=== PATIENT | male | born 2000 | race Caucasian/White ===

== ENCOUNTER 2018-10-15 00:45 | Emergency (ER) | payer OTHER ==
[2018-10-15] MEDS ORDERED: TDAP ADULT 0.5 ML INJ (BOOSTRIX) IM ONE (00:56)
[2018-10-15] MEDS ORDERED: AMOXICILLIN/CLAVULANATE POT 875/125 MG TAB PO ONE (03:01)
--- NOTE | 2018-10-15 03:06 | EDPHY ---
H & P Stated Complaint: stepped on glass with right foot Time Seen by Provider: 10/15/18 01:18 HPI/ROS: HPI: The patient presents with right foot laceration after stepping on a broken class wall drinking alcohol. A glass broke on the floor and he stepped on it while wearing shoes. The piece of glass punctured his shoe and went into his foot. He was able to remove it but believes about 1.5 in went into his foot. He is complaining of pain to his foot without any numbness or tingling. REVIEW OF SYSTEMS 10 systems were reviewed and negative with the exception of the elements mentioned in the history of present illness. PMHx: Healthy TRAUMA PHYSICAL General Appearance: Alert, no distress Head: Atraumatic Respiratory: Breathing comfortably Extremities: Right foot plantar surface with macerated 3 cm laceration in the mid foot which appears deep Neurological: A&Ox3, GCS=15,normal motor function with 5/5 strength in all 4 extremities, normal sensory exam Source: Patient Exam Limitations: No limitations - Personal History Current Tetanus/Diphtheria Vaccine: No Current Tetanus Diphtheria and Acellular Pertussis (TDAP): No - Medical/Surgical History Hx Asthma: No Hx Chronic Respiratory Disease: No Hx Diabetes: No Hx Cardiac Disease: No Hx Renal Disease: No Hx Cirrhosis: No Hx Alcoholism: No Hx HIV/AIDS: No Hx Splenectomy or Spleen Trauma: No Other PMH: denies - Social History Smoking Status: Current every day smoker Constitutional: Initial Vital Signs Temperature (C) 36.2 C 10/15/18 00:52 Heart Rate 117 H 10/15/18 00:52 Respiratory Rate 16 10/15/18 00:52 Blood Pressure 154/82 H 10/15/18 00:52 O2 Sat (%) 94 10/15/18 00:52 O2 Delivery Mode Room Air Allergies/Adverse Reactions: No Known Allergies Allergy (Unverified 10/15/18 00:53) Home Medications: Medication Instructions Recorded Ciprofloxacin [Cipro] 500 mg PO BID #14 tab 10/15/18 Medical Decision Making - Diagnostics Imaging Results: X-ray right foot three views shows no fracture, no foreign body, interpreted by me, radiology interpretation is pending. Imaging: I viewed and interpreted images myself Procedures: LACERATION REPAIR Procedure: Laceration repair. Verbal consent was obtained from the patient. The macerated 3 cm laceration on the right plantar surface of the foot was anesthetized using lidocaine with epi. The wound was scrubbed, draped and explored to its base with a gloved finger. There were no deep structures involved. No tendon injury was identified. The wound required extensive debridement . The wound was repaired with simple interrupted sutures 4-0 nylon. The wound repair was simple. The procedure was performed by myself. 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 He is neurovascularly intact. X-ray was obtained demonstrating no foreign body. Foot was given anesthetic and copiously irrigated. I closed the wound. I will start him on antibiotics to cover for Pseudomonas given puncture wound through shoe. I have discussed strict return precautions in case of infection. Differential diagnosis includes foot laceration, foot foreign body, less likely tendon injury. - Data Points Medications Given: Discontinued Medications Amoxicillin/Clavulanate Potassium (Augmentin 875mg) 875 mg PO EDNOW ONE PRN Reason: Protocol Stop: 10/15/18 03:02 Last Admin: 10/15/18 03:07 Dose: 875 mg Ciprofloxacin (Cipro) 500 mg PO EDNOW ONE PRN Reason: Protocol Stop: 10/15/18 03:08 Last Admin: 10/15/18 03:15 Dose: 500 mg Ciprofloxacin (Cipro 500mg Prepack#2) 1 btl TAKEHOME EDNOW ONE Stop: 10/15/18 03:08 Last Admin: 10/15/18 03:15 Dose: 1 btl Departure - Departure Disposition: Home, Routine, Self-Care Clinical Impression: Laceration of plantar aspect of foot Condition: Good Instructions: Ciprofloxacin (By mouth), Care For Your Stitches (ED), Laceration (ED) Additional Instructions: Your stitches should be removed in 7 days. You can return to the emergency department for this. Please monitor the wound for any redness, swelling, warmth , increased pain as these could be signs of infection. If you notice this, you should return to the emergency department. Please make sure to elevate your leg as much as possible, especially while sleeping. Referrals: Mindy Krishna MD [Medical Doctor] - As per Instructions Prescriptions: Ciprofloxacin [Cipro] 500 mg PO BID #14 tab
[2018-10-15] MEDS ORDERED: CIPROFLOXACIN 500 MG TAB PO ONE (03:07)
[2018-10-15] MEDS ORDERED: CIPROFLOXACIN 500MG PREPACK#2 BTL TAKEHOME ONE (03:07)
[2018-10-15 03:21] VITALS: BP 115/70
== END 2018-10-15 03:20 | disposition home or self-care (01) ==
PROC: 0HQMXZZ Repair Right Foot Skin, External Approach (ICD-10-PCS; principal; 2018-10-15)
DX: S91.311A Laceration without foreign body, right foot, initial encounter (principal); W25.XXXA Contact with sharp glass, initial encounter; Y92.9 Unspecified place or not applicable; Y99.9 Unspecified external cause status; Y93.9 Activity, unspecified